=== PATIENT | male | born 1950 | race African-American/Black ===

== ENCOUNTER 2020-07-24 05:48 | Emergency (ER) | payer OTHER ==
[~2020-07-24] VITALS: Ht 167.6 cm; Wt 72.7 kg
[2020-07-24 06:22] LABS: HEMATOCRIT 43.1 % (39.0-50.0); HEMOGLOBIN 14.1 g/dl (14.0-18.0); IMMATURE GRANULOCYTES 0.1 % (0.0-5.0); MEAN CELL VOLUME 87.6 fL CALC (80.0-100.0); MEAN CORPUSCULAR HGB 28.7 pG CALC (26.0-32.0); MEAN CORPUSCULAR HGB CONC 32.7 g/dL CAL (32.0-36.0); NEUT# 6.43 thou/uL (1.82-7.42); RED BLOOD COUNT 4.92 mill/uL (4.70-6.10); RED CELL DISTRI WIDTH 13.7 % (11.5-15.5)
[2020-07-24 06:38] LABS: ALBUMIN 4.3 g/dL (3.2-5.0); BILIRUBIN, TOTAL 0.4 mg/dL (0.0-1.4); CREATININE 1.8 mg/dL (0.7-1.3); POTASSIUM 3.1 mmol/l (3.5-5.1); TOTAL PROTEIN 7.8 g/dL (6.3-8.2)
[2020-07-24 06:42] LABS: URINE BILIRUBIN - DIPSTICK NEGATIVE (NEGATIVE); URINE BLOOD DIPSTICK SMALL (NEGATIVE); URINE COLOR YELLOW; URINE GLUCOSE - DIPSTICK NEGATIVE (NEGATIVE); URINE KETONE NEGATIVE (NEGATIVE); URINE LEUK ESTERASE NEGATIVE (NEGATIVE); URINE NITRITE - DIPSTICK NEGATIVE (Negative); URINE PH 7.5 (4.5-8.0); URINE PROTEIN - DIPSTICK 100 mg/dL (NEG-TRACE); URINE UROBILINOGEN - DIPSTICK 0.2 E.U./dL (0.2)
[2020-07-24 06:55] LABS: ACT PARTIAL THROMBO TIME 28.3 SECONDS (20.0-32.5); PROTHROMBIN TIME 10.4 SECONDS (9.0-12.5)
[2020-07-24 07:05] LABS: URINE SQUAMOUS EPITHELIAL CELL FEW EPI/hpf (0-FEW); URINE WBC 0-2 WBC/hpf (0-5)
[2020-07-24] MEDS ORDERED: AMLODIPINE BESYL5 MG PO (07:40)
[2020-07-24] MEDS ORDERED: POT CHLORIDE10 ME5 PO (07:40)
[2020-07-24 08:30] VITALS: BP 160/83
== END 2020-07-24 08:30 | DRG 305 ==
LOC: ED 05:48
PROVIDERS: Family Medicine
DX: I10 Essential (primary) hypertension (principal); E87.6 Hypokalemia; M10.9 Gout, unspecified; Z20.822 Contact with and (suspected) exposure to COVID-19